=== PATIENT | male | born 1955 | race Caucasian/White ===

== ENCOUNTER 2021-09-06 16:02 | Inpatient (IN) | payer MEDICARE ==
[~2021-09-06] VITALS: Ht 182.9 cm; Wt 73.5 kg
[2021-09-06 18:40] VITALS: BP 121/62
[2021-09-06] MEDS ORDERED: DEXTROSE 50%-WATER 25 GM/50 ML SYRINGE IVP PRN (18:45)
[2021-09-06] MEDS ORDERED: ACETAMINOPHEN 325 MG TABLET PO PRN (18:45)
[2021-09-06] MEDS ORDERED: HydrOXYzine PAMOATE 25 MG CAPSULE PO PRN (19:30)
[2021-09-06] MEDS ORDERED: NITROGLYCERIN 0.4 MG SUBLINGUAL TABLET #25 SL PRN (19:30)
[2021-09-06] MEDS: INSULIN LISPRO 100 UNITS/ML SQ PRN ×2 (19:35→21:13)
[2021-09-06 20:56] LABS: GLUCOMETER DEV NAME(LOC) 2WR.2B; GLUCOSE,POINT OF CARE 184 MG/DL (70-110)
[2021-09-06] MEDS ORDERED: HydrALAZINE HCL 25 MG TABLET PO SCH (21:00)
[2021-09-06] MEDS: ETHYL ALCOHOL 62% ANTISEPTIC NASAL INHALANT 0.6 ML AMPUL NASAL SCH (21:07)
[2021-09-06] MEDS: CycloSPORINE 0.05% 0.4 ML OPHTHALMIC EMULSION OU SCH (21:08)
[2021-09-06] MEDS: DOCUSATE SODIUM 100 MG CAPSULE PO SCH (21:09)
[2021-09-06] MEDS: PANTOPRAZOLE SODIUM 40 MG DR TABLET PO SCH (21:09)
[2021-09-06] MEDS: SENNA 187 MG TABLET PO SCH (21:09)
[2021-09-06] MEDS: KETOCONAZOLE 2% 15 GM CREAM TP SCH (21:09)
[2021-09-06] MEDS: CHLORHEXIDINE GLUCONATE 4% 118 ML TOPICAL LIQUID TP SCH (21:21)
[2021-09-06] MEDS: MIRTAZAPINE 30 MG TABLET PO SCH (22:31)
[2021-09-06] MEDS: MELATONIN 5 MG TABLET PO SCH (22:31)
[2021-09-06] MEDS: TraZODone HCL 50 MG TABLET PO SCH (22:31)
[2021-09-06 22:35] VITALS: BP 128/64
[2021-09-06 22:41] LABS: GLUCOMETER DEV NAME(LOC) 2WR.2B; GLUCOSE,POINT OF CARE 181 MG/DL (70-110)
[2021-09-06] MEDS: CALCIUM CARBONATE 500 MG CHEWABLE TABLET CHEW SCH (22:55)
[2021-09-06] MEDS: 0.9% SODIUM CHLORIDE 10 ML SYRINGE IVP SCH (22:58)
[2021-09-06] MEDS ORDERED: CALCIUM CARBONATE 500 MG TABLET PO SCH (23:00)
[2021-09-07 06:11] LABS: GLUCOMETER DEV NAME(LOC) 2WR.2B; GLUCOSE,POINT OF CARE 105 MG/DL (70-110)
[2021-09-07] MEDS ORDERED: SEVELAMER CARBONATE 800 MG TABLET PO SCH (07:30)
[2021-09-07 07:56] LABS: BASOPHILS % (AUTO) 0.9 % (0.0-2.0); EOSINOPHILS % (AUTO) 3.8 % (1.0-6.0); HEMOGLOBIN 8.6 g/dL (13.5-17.5); LYMPHOCYTES # (AUTO) 1.2 K/uL (1.0-4.8); LYMPHOCYTES % (AUTO) 12.5 % (22.0-44.0); MEAN CORPUSCULAR HEMOGLOBIN 27.8 pg (26.0-34.0); MEAN CORPUSCULAR HGB CONC 31.7 G/dL (31.0-37.0); MEAN CORPUSCULAR VOLUME 88 fL (80-100); MONOCYTES # (AUTO) 0.8 K/uL (0.1-1.0); MONOCYTES % (AUTO) 8.5 % (2.0-9.0); NEUTROPHILS # (AUTO) 7.4 K/uL (1.8-7.7); NEUTROPHILS % (AUTO) 74.3 % (40.0-70.0); PLATELET COUNT (AUTO) 328 K/uL (150-450); RED BLOOD CELL COUNT(AUTO) 3.08 MIL/uL (4.50-5.90); RED CELL DISTRIBUTION WIDTH 20.6 % (11.5-14.5)
[2021-09-07 08:08] LABS: ALBUMIN 2.4 g/dL (3.4-5.0); BILIRUBIN,TOTAL 0.2 mg/dL (0.1-1.0); CALCIUM, TOTAL 8.9 mg/dL (8.8-10.5); CREATININE 5.1 mg/dL (0.60-1.30); POTASSIUM 4.4 mmol/L (3.5-5.1); TOTAL PROTEIN, SERUM 6.6 g/dL (6.4-8.2)
[2021-09-07] MEDS: CARVEDILOL 12.5 MG TABLET PO SCH ×2 (08:09→16:14)
[2021-09-07] MEDS: FERROUS SULFATE 325 MG EC TABLET PO SCH (08:09)
[2021-09-07 08:10] LABS: INR 2.2 (0.9-1.1); PROTHROMBIN TIME 22.9 SEC (9.4-11.6)
[2021-09-07] MEDS: SEVELAMER CARBONATE 800 MG TABLET PO SCH ×3 (08:10→16:14)
[2021-09-07] MEDS: CINACALCET HCL 30 MG TABLET PO SCH (08:11)
[2021-09-07] MEDS: ETHYL ALCOHOL 62% ANTISEPTIC NASAL INHALANT 0.6 ML AMPUL NASAL SCH ×2 (08:12→20:01)
[2021-09-07] MEDS: 0.9% SODIUM CHLORIDE 10 ML SYRINGE IVP SCH ×2 (08:12→16:15)
[2021-09-07] MEDS: METOCLOPRAMIDE HCL 10 MG TABLET PO PRN (08:16)
[2021-09-07] MEDS: ASPIRIN 81 MG CHEWABLE TABLET PO SCH (08:39)
[2021-09-07] MEDS: CycloSPORINE 0.05% 0.4 ML OPHTHALMIC EMULSION OU SCH ×2 (08:39→20:02)
[2021-09-07] MEDS: PANTOPRAZOLE SODIUM 40 MG DR TABLET PO SCH ×2 (08:40→20:04)
[2021-09-07] MEDS: DOCUSATE SODIUM 100 MG CAPSULE PO SCH ×2 (08:40→20:02)
[2021-09-07] MEDS: TAMSULOSIN HCL 0.4 MG CAPSULE PO SCH (08:40)
[2021-09-07] MEDS: FAMOTIDINE 20 MG TABLET PO SCH (08:40)
[2021-09-07] MEDS: ASCORBIC ACID 500 MG TABLET PO SCH (08:41)
[2021-09-07] MEDS: VITAMIN B COMPLEX WITH C TABLET PO SCH (08:41)
[2021-09-07] MEDS: AMIODARONE HCL 200 MG TABLET PO SCH (08:42)
[2021-09-07] MEDS: FINASTERIDE 5 MG TABLET PO SCH (08:42)
[2021-09-07 09:16] VITALS: BP 133/62
[2021-09-07] MEDS: TraMADol HCL 50 MG TABLET PO PRN (09:16)
[2021-09-07] MEDS: EPOETIN ALFA 10,000 UNITS/ML VIAL SQ SCH (12:02)
[2021-09-07] MEDS: CADEXOMER IODINE 0.9% 40 GM GEL TP SCH (12:03)
[2021-09-07] MEDS: KETOCONAZOLE 2% 15 GM CREAM TP SCH ×2 (12:03→20:10)
[2021-09-07] MEDS: PRAVASTATIN SODIUM 10 MG TABLET PO SCH (13:13)
[2021-09-07 13:25] LABS: GLUCOMETER DEV NAME(LOC) 2WR.2B; GLUCOSE,POINT OF CARE 140 MG/DL (70-110)
[2021-09-07] MEDS: WARFARIN SODIUM 7.5 MG TABLET PO SCH (16:13)
[2021-09-07] MEDS: INSULIN LISPRO 100 UNITS/ML SQ PRN ×2 (16:43→20:37)
[2021-09-07] MEDS: OxyCODONE HCL 5 MG IR TABLET PO PRN (16:45)
[2021-09-07 17:06] LABS: GLUCOMETER DEV NAME(LOC) 2WR.1C; GLUCOSE,POINT OF CARE 175 MG/DL (70-110)
[2021-09-07] MEDS: CHLORHEXIDINE GLUCONATE 4% 118 ML TOPICAL LIQUID TP SCH (20:07)
[2021-09-07] MEDS: SENNA 187 MG TABLET PO SCH (20:10)
[2021-09-07] MEDS: CALCIUM CARBONATE 500 MG CHEWABLE TABLET CHEW SCH (20:18)
[2021-09-07] MEDS: LORazepam 0.5 MG TABLET PO PRN (21:52)
[2021-09-07 22:36] LABS: GLUCOMETER DEV NAME(LOC) 2WR.2B; GLUCOSE,POINT OF CARE 170 MG/DL (70-110)
[2021-09-07 22:40] VITALS: BP 121/65
[2021-09-07] MEDS ORDERED: SODIUM CHLORIDE 0.9% 0 ML ONE (22:42)
[2021-09-07 23:00] VITALS: BP 129/74
[2021-09-07 23:15] VITALS: BP 128/81
[2021-09-07 23:30] VITALS: BP 127/73
[2021-09-07 23:31] VITALS: BP 127/73
[2021-09-08] VITALS (10 sets, daily range): BP systolic 116–133; BP diastolic 62–79
[2021-09-08] MEDS: 0.9% SODIUM CHLORIDE 10 ML SYRINGE IVP SCH ×4 (02:51→23:20)
[2021-09-08] MEDS: MIRTAZAPINE 30 MG TABLET PO SCH ×2 (02:51→22:13)
[2021-09-08] MEDS: TraZODone HCL 50 MG TABLET PO SCH ×2 (02:51→22:13)
[2021-09-08] MEDS: MELATONIN 5 MG TABLET PO SCH ×2 (02:51→22:14)
[2021-09-08] MEDS: OxyCODONE HCL 5 MG IR TABLET PO PRN ×3 (05:10→19:28)
[2021-09-08 08:36] LABS: GLUCOMETER DEV NAME(LOC) 2WR.2B; GLUCOSE,POINT OF CARE 99 MG/DL (70-110)
[2021-09-08 08:53] LABS: INR 2.8 (0.9-1.1); PROTHROMBIN TIME 28.7 SEC (9.4-11.6)
[2021-09-08] MEDS: VITAMIN B COMPLEX WITH C TABLET PO SCH (09:48)
[2021-09-08] MEDS: SEVELAMER CARBONATE 800 MG TABLET PO SCH ×3 (09:48→16:12)
[2021-09-08] MEDS: DOCUSATE SODIUM 100 MG CAPSULE PO SCH ×2 (09:48→19:40)
[2021-09-08] MEDS: FAMOTIDINE 20 MG TABLET PO SCH (09:48)
[2021-09-08] MEDS: ASCORBIC ACID 500 MG TABLET PO SCH (09:48)
[2021-09-08] MEDS: TORSEMIDE 100 MG TABLET PO SCH (09:49)
[2021-09-08] MEDS: METOLAZONE 2.5 MG TABLET PO SCH (09:49)
[2021-09-08] MEDS: ASPIRIN 81 MG CHEWABLE TABLET PO SCH (09:49)
[2021-09-08] MEDS: AMIODARONE HCL 200 MG TABLET PO SCH (09:49)
[2021-09-08] MEDS: CINACALCET HCL 30 MG TABLET PO SCH (09:49)
[2021-09-08] MEDS: FINASTERIDE 5 MG TABLET PO SCH (09:49)
[2021-09-08] MEDS: PRAVASTATIN SODIUM 10 MG TABLET PO SCH (09:50)
[2021-09-08] MEDS: CARVEDILOL 12.5 MG TABLET PO SCH ×2 (09:50→16:12)
[2021-09-08] MEDS: CycloSPORINE 0.05% 0.4 ML OPHTHALMIC EMULSION OU SCH ×2 (09:50→19:40)
[2021-09-08] MEDS: PANTOPRAZOLE SODIUM 40 MG DR TABLET PO SCH ×2 (09:50→19:48)
[2021-09-08] MEDS: TAMSULOSIN HCL 0.4 MG CAPSULE PO SCH (09:50)
[2021-09-08] MEDS: FERROUS SULFATE 325 MG EC TABLET PO SCH (09:50)
[2021-09-08] MEDS: ETHYL ALCOHOL 62% ANTISEPTIC NASAL INHALANT 0.6 ML AMPUL NASAL SCH ×2 (09:51→19:40)
[2021-09-08] MEDS: KETOCONAZOLE 2% 15 GM CREAM TP SCH ×2 (10:01→19:45)
[2021-09-08] MEDS: INSULIN LISPRO 100 UNITS/ML SQ PRN ×2 (12:48→20:47)
[2021-09-08 12:56] LABS: GLUCOMETER DEV NAME(LOC) 2WR.2B; GLUCOSE,POINT OF CARE 187 MG/DL (70-110)
[2021-09-08] MEDS: LORazepam 0.5 MG TABLET PO PRN (13:54)
[2021-09-08] MEDS ORDERED: HEPARIN SODIUM,PORCINE 1,000 UNITS/ML VIAL IVP ONE (14:27)
[2021-09-08] MEDS: WARFARIN SODIUM 7.5 MG TABLET PO SCH (16:12)
[2021-09-08 17:16] LABS: GLUCOMETER DEV NAME(LOC) 2WR.1C; GLUCOSE,POINT OF CARE 115 MG/DL (70-110)
[2021-09-08] MEDS: CALCIUM CARBONATE 500 MG CHEWABLE TABLET CHEW SCH (19:39)
[2021-09-08] MEDS: CHLORHEXIDINE GLUCONATE 4% 118 ML TOPICAL LIQUID TP SCH (19:45)
[2021-09-08] MEDS: SENNA 187 MG TABLET PO SCH (19:53)
[2021-09-08 22:01] LABS: GLUCOMETER DEV NAME(LOC) 2WR.1C; GLUCOSE,POINT OF CARE 146 MG/DL (70-110)
[2021-09-09] VITALS (12 sets, daily range): BP systolic 118–133; BP diastolic 51–78
[2021-09-09] MEDS: OxyCODONE HCL 5 MG IR TABLET PO PRN ×2 (01:58→12:22)
[2021-09-09 06:26] LABS: GLUCOMETER DEV NAME(LOC) 2WR.2B; GLUCOSE,POINT OF CARE 92 MG/DL (70-110)
[2021-09-09 08:48] LABS: INR 3.1 (0.9-1.1); PROTHROMBIN TIME 31.7 SEC (9.4-11.6)
[2021-09-09 08:53] LABS: CALCIUM, TOTAL 8.5 mg/dL (8.8-10.5); PHOSPHORUS 6.7 mg/dL (2.5-4.9)
[2021-09-09] MEDS: CINACALCET HCL 30 MG TABLET PO SCH (08:58)
[2021-09-09] MEDS: FAMOTIDINE 20 MG TABLET PO SCH (08:58)
[2021-09-09] MEDS: CycloSPORINE 0.05% 0.4 ML OPHTHALMIC EMULSION OU SCH ×2 (08:58→22:00)
[2021-09-09] MEDS: ETHYL ALCOHOL 62% ANTISEPTIC NASAL INHALANT 0.6 ML AMPUL NASAL SCH ×2 (08:58→22:00)
[2021-09-09] MEDS: VITAMIN B COMPLEX WITH C TABLET PO SCH (08:58)
[2021-09-09] MEDS: PRAVASTATIN SODIUM 10 MG TABLET PO SCH (08:58)
[2021-09-09] MEDS: FINASTERIDE 5 MG TABLET PO SCH (08:58)
[2021-09-09] MEDS: TORSEMIDE 100 MG TABLET PO SCH (08:59)
[2021-09-09] MEDS: SEVELAMER CARBONATE 800 MG TABLET PO SCH ×3 (08:59→19:04)
[2021-09-09] MEDS: PANTOPRAZOLE SODIUM 40 MG DR TABLET PO SCH ×2 (08:59→21:59)
[2021-09-09] MEDS: AMIODARONE HCL 200 MG TABLET PO SCH (08:59)
[2021-09-09] MEDS: DOCUSATE SODIUM 100 MG CAPSULE PO SCH ×2 (08:59→21:59)
[2021-09-09] MEDS: FERROUS SULFATE 325 MG EC TABLET PO SCH (08:59)
[2021-09-09] MEDS: ASPIRIN 81 MG CHEWABLE TABLET PO SCH (08:59)
[2021-09-09] MEDS ORDERED: HydrALAZINE HCL 25 MG TABLET PO SCH ×2 (09:00→16:00)
[2021-09-09] MEDS: ASCORBIC ACID 500 MG TABLET PO SCH (09:00)
[2021-09-09] MEDS: CARVEDILOL 12.5 MG TABLET PO SCH ×2 (09:00→19:04)
[2021-09-09] MEDS: TAMSULOSIN HCL 0.4 MG CAPSULE PO SCH (09:00)
[2021-09-09] MEDS: METOLAZONE 2.5 MG TABLET PO SCH (09:12)
[2021-09-09] MEDS: 0.9% SODIUM CHLORIDE 10 ML SYRINGE IVP SCH ×3 (09:13→23:42)
[2021-09-09] MEDS: KETOCONAZOLE 2% 15 GM CREAM TP SCH ×2 (09:13→22:01)
[2021-09-09 12:31] LABS: GLUCOMETER DEV NAME(LOC) 2WR.2B; GLUCOSE,POINT OF CARE 120 MG/DL (70-110)
[2021-09-09] MEDS ORDERED: SODIUM CHLORIDE 0.9% 2,000 ML ONE (13:47)
[2021-09-09] MEDS ORDERED: HEPARIN SODIUM,PORCINE 1,000 UNITS/ML VIAL IVP ONE (16:50)
[2021-09-09] MEDS: WARFARIN SODIUM 7.5 MG TABLET PO SCH (19:04)
[2021-09-09 19:36] LABS: GLUCOMETER DEV NAME(LOC) 2WR.1C; GLUCOSE,POINT OF CARE 91 MG/DL (70-110)
[2021-09-09] MEDS: INSULIN LISPRO 100 UNITS/ML SQ PRN (21:55)
[2021-09-09] MEDS: MELATONIN 5 MG TABLET PO SCH (21:59)
[2021-09-09] MEDS: CALCIUM CARBONATE 500 MG CHEWABLE TABLET CHEW SCH (22:00)
[2021-09-09] MEDS: SENNA 187 MG TABLET PO SCH (22:00)
[2021-09-09] MEDS: CHLORHEXIDINE GLUCONATE 4% 118 ML TOPICAL LIQUID TP SCH (22:02)
[2021-09-09] MEDS: MIRTAZAPINE 30 MG TABLET PO SCH (22:02)
[2021-09-09 22:11] LABS: GLUCOMETER DEV NAME(LOC) 2WR.1C; GLUCOSE,POINT OF CARE 161 MG/DL (70-110)
[2021-09-09] MEDS: TraZODone HCL 50 MG TABLET PO SCH (22:50)
[2021-09-10 01:00] VITALS: BP 113/64
[2021-09-10] MEDS: OxyCODONE HCL 5 MG IR TABLET PO PRN ×3 (01:00→20:07)
[2021-09-10 06:26] LABS: GLUCOMETER DEV NAME(LOC) 2WR.1C; GLUCOSE,POINT OF CARE 89 MG/DL (70-110)
[2021-09-10 07:28] LABS: BASOPHILS % (AUTO) 0.6 % (0.0-2.0); EOSINOPHILS % (AUTO) 3.5 % (1.0-6.0); HEMATOCRIT 26.3 % (41-53); HEMOGLOBIN 8.2 g/dL (13.5-17.5); LYMPHOCYTES # (AUTO) 0.7 K/uL (1.0-4.8); LYMPHOCYTES % (AUTO) 8.7 % (22.0-44.0); MEAN CORPUSCULAR HEMOGLOBIN 27.4 pg (26.0-34.0); MEAN CORPUSCULAR HGB CONC 31.1 G/dL (31.0-37.0); MEAN CORPUSCULAR VOLUME 88 fL (80-100); MONOCYTES # (AUTO) 0.7 K/uL (0.1-1.0); MONOCYTES % (AUTO) 8.2 % (2.0-9.0); NEUTROPHILS # (AUTO) 6.7 K/uL (1.8-7.7); PLATELET COUNT (AUTO) 274 K/uL (150-450); RED BLOOD CELL COUNT(AUTO) 2.99 MIL/uL (4.50-5.90); RED CELL DISTRIBUTION WIDTH 20.1 % (11.5-14.5)
[2021-09-10 07:40] LABS: CALCIUM, TOTAL 8.4 mg/dL (8.8-10.5); CREATININE 2.76 mg/dL (0.60-1.30); MAGNESIUM 2.2 mg/dL (1.80-2.40); POTASSIUM 3.4 mmol/L (3.5-5.1)
[2021-09-10 07:50] LABS: INR 3.5 (0.9-1.1); PROTHROMBIN TIME 34.8 SEC (9.4-11.6)
[2021-09-10] MEDS: CycloSPORINE 0.05% 0.4 ML OPHTHALMIC EMULSION OU SCH ×2 (08:53→20:28)
[2021-09-10] MEDS: EPOETIN ALFA 10,000 UNITS/ML VIAL SQ SCH (08:54)
[2021-09-10] MEDS: METOLAZONE 2.5 MG TABLET PO SCH (08:55)
[2021-09-10] MEDS: PRAVASTATIN SODIUM 10 MG TABLET PO SCH (08:55)
[2021-09-10] MEDS: CINACALCET HCL 30 MG TABLET PO SCH (08:55)
[2021-09-10] MEDS: VITAMIN B COMPLEX WITH C TABLET PO SCH (08:55)
[2021-09-10] MEDS: SEVELAMER CARBONATE 800 MG TABLET PO SCH ×3 (08:56→20:08)
[2021-09-10] MEDS: PANTOPRAZOLE SODIUM 40 MG DR TABLET PO SCH ×2 (08:56→20:28)
[2021-09-10] MEDS: TORSEMIDE 100 MG TABLET PO SCH (08:56)
[2021-09-10] MEDS: ASPIRIN 81 MG CHEWABLE TABLET PO SCH (08:57)
[2021-09-10] MEDS: AMIODARONE HCL 200 MG TABLET PO SCH (08:57)
[2021-09-10] MEDS: CARVEDILOL 12.5 MG TABLET PO SCH ×2 (08:57→20:07)
[2021-09-10] MEDS: ASCORBIC ACID 500 MG TABLET PO SCH (08:57)
[2021-09-10] MEDS: FINASTERIDE 5 MG TABLET PO SCH (08:58)
[2021-09-10] MEDS: FAMOTIDINE 20 MG TABLET PO SCH (08:58)
[2021-09-10] MEDS: DOCUSATE SODIUM 100 MG CAPSULE PO SCH ×2 (08:58→20:28)
[2021-09-10] MEDS: FERROUS SULFATE 325 MG EC TABLET PO SCH (08:58)
[2021-09-10] MEDS: TAMSULOSIN HCL 0.4 MG CAPSULE PO SCH (08:58)
[2021-09-10] MEDS: ETHYL ALCOHOL 62% ANTISEPTIC NASAL INHALANT 0.6 ML AMPUL NASAL SCH ×2 (08:59→20:29)
[2021-09-10] MEDS: 0.9% SODIUM CHLORIDE 10 ML SYRINGE IVP SCH ×3 (08:59→23:51)
[2021-09-10] MEDS: KETOCONAZOLE 2% 15 GM CREAM TP SCH ×2 (08:59→20:28)
[2021-09-10] MEDS: CADEXOMER IODINE 0.9% 40 GM GEL TP SCH (08:59)
[2021-09-10] MEDS ORDERED: HydrALAZINE HCL 25 MG TABLET PO SCH (09:00)
[2021-09-10 09:15] VITALS: BP 123/62
[2021-09-10 14:06] LABS: GLUCOMETER DEV NAME(LOC) 2WR.2B; GLUCOSE,POINT OF CARE 119 MG/DL (70-110)
[2021-09-10 16:14] VITALS: BP 111/70
[2021-09-10 17:01] LABS: GLUCOMETER DEV NAME(LOC) 2WR.2B; GLUCOSE,POINT OF CARE 120 MG/DL (70-110)
[2021-09-10 20:00] VITALS: BP 118/62
[2021-09-10] MEDS: SENNA 187 MG TABLET PO SCH (20:28)
[2021-09-10] MEDS: CHLORHEXIDINE GLUCONATE 4% 118 ML TOPICAL LIQUID TP SCH (20:30)
[2021-09-10] MEDS: INSULIN LISPRO 100 UNITS/ML SQ PRN (20:39)
[2021-09-10 20:57] LABS: GLUCOMETER DEV NAME(LOC) 2WR.2B; GLUCOSE,POINT OF CARE 169 MG/DL (70-110)
[2021-09-10] MEDS: TraZODone HCL 50 MG TABLET PO SCH (22:31)
[2021-09-10] MEDS: CALCIUM CARBONATE 500 MG CHEWABLE TABLET CHEW SCH (22:31)
[2021-09-10] MEDS: MELATONIN 5 MG TABLET PO SCH (22:31)
[2021-09-10] MEDS: MIRTAZAPINE 30 MG TABLET PO SCH (22:31)
[2021-09-11] VITALS (15 sets, daily range): BP systolic 105–134; BP diastolic 58–82
[2021-09-11] MEDS: CARVEDILOL 12.5 MG TABLET PO SCH ×2 (07:30→19:59)
[2021-09-11 08:06] LABS: GLUCOMETER DEV NAME(LOC) 2WR.1C; GLUCOSE,POINT OF CARE 87 MG/DL (70-110)
[2021-09-11] MEDS: ETHYL ALCOHOL 62% ANTISEPTIC NASAL INHALANT 0.6 ML AMPUL NASAL SCH ×2 (08:37→20:01)
[2021-09-11 08:39] LABS: INR 3.1 (0.9-1.1)
[2021-09-11] MEDS: CycloSPORINE 0.05% 0.4 ML OPHTHALMIC EMULSION OU SCH ×2 (08:39→20:01)
[2021-09-11 08:40] LABS: CALCIUM, TOTAL 8.4 mg/dL (8.8-10.5); CREATININE 3.76 mg/dL (0.60-1.30); MAGNESIUM 2.1 mg/dL (1.80-2.40); PHOSPHORUS 5.7 mg/dL (2.5-4.9); POTASSIUM 3.3 mmol/L (3.5-5.1)
[2021-09-11] MEDS: FERROUS SULFATE 325 MG EC TABLET PO SCH (08:40)
[2021-09-11] MEDS: VITAMIN B COMPLEX WITH C TABLET PO SCH (08:40)
[2021-09-11] MEDS: KETOCONAZOLE 2% 15 GM CREAM TP SCH ×2 (08:40→20:00)
[2021-09-11] MEDS: ASCORBIC ACID 500 MG TABLET PO SCH (08:41)
[2021-09-11] MEDS: OxyCODONE HCL 5 MG IR TABLET PO PRN ×2 (08:41→21:02)
[2021-09-11] MEDS: AMIODARONE HCL 200 MG TABLET PO SCH (08:42)
[2021-09-11] MEDS: DOCUSATE SODIUM 100 MG CAPSULE PO SCH ×2 (08:42→20:03)
[2021-09-11] MEDS: PANTOPRAZOLE SODIUM 40 MG DR TABLET PO SCH ×2 (08:42→20:03)
[2021-09-11] MEDS: TAMSULOSIN HCL 0.4 MG CAPSULE PO SCH (08:42)
[2021-09-11] MEDS: ASPIRIN 81 MG CHEWABLE TABLET PO SCH (08:42)
[2021-09-11] MEDS: SEVELAMER CARBONATE 800 MG TABLET PO SCH ×3 (08:43→19:57)
[2021-09-11] MEDS: PRAVASTATIN SODIUM 10 MG TABLET PO SCH (08:44)
[2021-09-11] MEDS: FINASTERIDE 5 MG TABLET PO SCH (08:44)
[2021-09-11] MEDS: FAMOTIDINE 20 MG TABLET PO SCH (08:44)
[2021-09-11] MEDS: 0.9% SODIUM CHLORIDE 10 ML SYRINGE IVP SCH ×2 (08:45→20:00)
[2021-09-11 08:50] LABS: % IRON SATURATION 7.2 % (30-44)
[2021-09-11 14:26] LABS: GLUCOMETER DEV NAME(LOC) 2WR.1C; GLUCOSE,POINT OF CARE 120 MG/DL (70-110)
[2021-09-11] MEDS: LORazepam 0.5 MG TABLET PO PRN (15:25)
[2021-09-11] MEDS ORDERED: SODIUM CHLORIDE 0.9% 1,000 ML ONE ×2 (15:33)
[2021-09-11] MEDS ORDERED: HEPARIN SODIUM,PORCINE 1,000 UNITS/ML VIAL IVP ONE (16:49)
[2021-09-11] MEDS ORDERED: WARFARIN SODIUM 3 MG TABLET PO SCH (17:00)
[2021-09-11] MEDS: SOD FERRIC GLUC COMPLX/SUCROSE 125 MG in SODIUM CHLORIDE 0.9% 100 ML IV SCH ×2 (18:30→19:57)
[2021-09-11] MEDS: CHLORHEXIDINE GLUCONATE 4% 118 ML TOPICAL LIQUID TP SCH (20:00)
[2021-09-11] MEDS: SENNA 187 MG TABLET PO SCH (20:03)
[2021-09-11 21:57] LABS: GLUCOMETER DEV NAME(LOC) 2WR.2B; GLUCOSE,POINT OF CARE 80 MG/DL (70-110)
[2021-09-11] MEDS: INSULIN LISPRO 100 UNITS/ML SQ PRN (22:22)
[2021-09-11] MEDS: CALCIUM CARBONATE 500 MG CHEWABLE TABLET CHEW SCH (22:23)
[2021-09-11] MEDS: MIRTAZAPINE 30 MG TABLET PO SCH (22:23)
[2021-09-11] MEDS: TraZODone HCL 50 MG TABLET PO SCH (22:23)
[2021-09-11] MEDS: MELATONIN 5 MG TABLET PO SCH (22:25)
[2021-09-11 23:36] LABS: GLUCOMETER DEV NAME(LOC) 2WR.2B; GLUCOSE,POINT OF CARE 164 MG/DL (70-110)
[2021-09-12 00:22] VITALS: BP 122/65
[2021-09-12] MEDS: TraMADol HCL 50 MG TABLET PO PRN (00:22)
[2021-09-12] MEDS: 0.9% SODIUM CHLORIDE 10 ML SYRINGE IVP SCH ×3 (00:25→16:51)
[2021-09-12 06:46] LABS: GLUCOMETER DEV NAME(LOC) 2WR.1C; GLUCOSE,POINT OF CARE 93 MG/DL (70-110)
[2021-09-12] MEDS: METOCLOPRAMIDE HCL 10 MG TABLET PO PRN (08:32)
[2021-09-12] MEDS: ETHYL ALCOHOL 62% ANTISEPTIC NASAL INHALANT 0.6 ML AMPUL NASAL SCH ×2 (08:33→21:22)
[2021-09-12 08:42] LABS: INR 2.2 (0.9-1.1)
[2021-09-12 08:51] LABS: ALBUMIN 2.6 g/dL (3.4-5.0); BILIRUBIN,DIRECT 0.1 mg/dL (0.00-0.20); BILIRUBIN,TOTAL 0.2 mg/dL (0.1-1.0); TOTAL PROTEIN, SERUM 6.6 g/dL (6.4-8.2)
[2021-09-12] MEDS: OxyCODONE HCL 5 MG IR TABLET PO PRN ×2 (08:53→19:32)
[2021-09-12] MEDS: AMIODARONE HCL 200 MG TABLET PO SCH (08:54)
[2021-09-12] MEDS: VITAMIN B COMPLEX WITH C TABLET PO SCH (08:54)
[2021-09-12] MEDS: TAMSULOSIN HCL 0.4 MG CAPSULE PO SCH (08:54)
[2021-09-12] MEDS: METOLAZONE 2.5 MG TABLET PO SCH (08:54)
[2021-09-12] MEDS: FINASTERIDE 5 MG TABLET PO SCH (08:54)
[2021-09-12] MEDS: SEVELAMER CARBONATE 800 MG TABLET PO SCH ×3 (08:54→16:41)
[2021-09-12] MEDS: DOCUSATE SODIUM 100 MG CAPSULE PO SCH ×2 (08:54→21:21)
[2021-09-12] MEDS: FERROUS SULFATE 325 MG EC TABLET PO SCH (08:55)
[2021-09-12] MEDS: CycloSPORINE 0.05% 0.4 ML OPHTHALMIC EMULSION OU SCH ×2 (08:55→21:22)
[2021-09-12] MEDS: FAMOTIDINE 20 MG TABLET PO SCH (08:55)
[2021-09-12] MEDS: ASPIRIN 81 MG CHEWABLE TABLET PO SCH (08:55)
[2021-09-12] MEDS: ASCORBIC ACID 500 MG TABLET PO SCH (08:55)
[2021-09-12] MEDS: TORSEMIDE 100 MG TABLET PO SCH (08:55)
[2021-09-12] MEDS: PRAVASTATIN SODIUM 10 MG TABLET PO SCH (08:55)
[2021-09-12] MEDS: CARVEDILOL 12.5 MG TABLET PO SCH ×2 (08:55→16:41)
[2021-09-12] MEDS: PANTOPRAZOLE SODIUM 40 MG DR TABLET PO SCH ×2 (08:55→21:21)
[2021-09-12] MEDS: KETOCONAZOLE 2% 15 GM CREAM TP SCH ×2 (08:56→21:23)
[2021-09-12] MEDS: CADEXOMER IODINE 0.9% 40 GM GEL TP SCH (08:56)
[2021-09-12 09:00] VITALS: BP 106/58
[2021-09-12] MEDS: EPOETIN ALFA 10,000 UNITS/ML VIAL SQ SCH (09:29)
[2021-09-12 12:26] LABS: GLUCOMETER DEV NAME(LOC) 2WR.1C; GLUCOSE,POINT OF CARE 117 MG/DL (70-110)
[2021-09-12] MEDS ORDERED: SODIUM CL IRRIG SOLN BOTTLE 250 ML IRRIG ONE (16:22)
[2021-09-12 16:30] VITALS: BP 126/74
[2021-09-12] MEDS ORDERED: WARFARIN SODIUM 2 MG TABLET PO SCH (17:00)
[2021-09-12 17:01] LABS: GLUCOMETER DEV NAME(LOC) 2WR.2B; GLUCOSE,POINT OF CARE 98 MG/DL (70-110)
[2021-09-12 21:00] VITALS: BP 115/62
[2021-09-12] MEDS: CHLORHEXIDINE GLUCONATE 4% 118 ML TOPICAL LIQUID TP SCH (21:21)
[2021-09-12] MEDS: SENNA 187 MG TABLET PO SCH (21:21)
[2021-09-12] MEDS: CALCIUM CARBONATE 500 MG CHEWABLE TABLET CHEW SCH (21:22)
[2021-09-12 21:51] LABS: GLUCOMETER DEV NAME(LOC) 2WR.2B; GLUCOSE,POINT OF CARE 126 MG/DL (70-110)
[2021-09-12] MEDS: MIRTAZAPINE 30 MG TABLET PO SCH (22:27)
[2021-09-12] MEDS: TraZODone HCL 50 MG TABLET PO SCH (22:28)
[2021-09-12] MEDS: MELATONIN 5 MG TABLET PO SCH (22:28)
[2021-09-13] VITALS (13 sets, daily range): BP systolic 95–150; BP diastolic 57–80
[2021-09-13] MEDS: 0.9% SODIUM CHLORIDE 10 ML SYRINGE IVP SCH ×4 (00:17→23:13)
[2021-09-13] MEDS: OxyCODONE HCL 5 MG IR TABLET PO PRN ×3 (01:43→21:56)
[2021-09-13 06:11] LABS: GLUCOMETER DEV NAME(LOC) 2WR.2B; GLUCOSE,POINT OF CARE 112 MG/DL (70-110)
[2021-09-13 07:52] LABS: BASOPHILS % (AUTO) 1.2 % (0.0-2.0); EOSINOPHILS % (AUTO) 3.3 % (1.0-6.0); HEMATOCRIT 26.7 % (41-53); HEMOGLOBIN 8.6 g/dL (13.5-17.5); LYMPHOCYTES # (AUTO) 0.6 K/uL (1.0-4.8); MEAN CORPUSCULAR HEMOGLOBIN 27.7 pg (26.0-34.0); MEAN CORPUSCULAR HGB CONC 32.1 G/dL (31.0-37.0); MEAN CORPUSCULAR VOLUME 86 fL (80-100); MONOCYTES # (AUTO) 0.8 K/uL (0.1-1.0); MONOCYTES % (AUTO) 8.5 % (2.0-9.0); NEUTROPHILS # (AUTO) 7.3 K/uL (1.8-7.7); PLATELET COUNT (AUTO) 215 K/uL (150-450); RED CELL DISTRIBUTION WIDTH 20.1 % (11.5-14.5)
[2021-09-13 08:03] LABS: CALCIUM, TOTAL 9.3 mg/dL (8.8-10.5); CREATININE 3.54 mg/dL (0.60-1.30); MAGNESIUM 2.2 mg/dL (1.80-2.40); POTASSIUM 3.6 mmol/L (3.5-5.1)
[2021-09-13 08:04] LABS: INR 1.9 (0.9-1.1); PROTHROMBIN TIME 20.1 SEC (9.4-11.6)
[2021-09-13] MEDS: FERROUS SULFATE 325 MG EC TABLET PO SCH (08:11)
[2021-09-13] MEDS: VITAMIN B COMPLEX WITH C TABLET PO SCH (08:11)
[2021-09-13] MEDS: ASPIRIN 81 MG CHEWABLE TABLET PO SCH (08:11)
[2021-09-13] MEDS: ETHYL ALCOHOL 62% ANTISEPTIC NASAL INHALANT 0.6 ML AMPUL NASAL SCH ×2 (08:11→20:13)
[2021-09-13] MEDS: FINASTERIDE 5 MG TABLET PO SCH (08:12)
[2021-09-13] MEDS: FAMOTIDINE 20 MG TABLET PO SCH (08:12)
[2021-09-13] MEDS: DOCUSATE SODIUM 100 MG CAPSULE PO SCH ×2 (08:12→20:13)
[2021-09-13] MEDS: CARVEDILOL 12.5 MG TABLET PO SCH ×2 (08:12→20:09)
[2021-09-13] MEDS: AMIODARONE HCL 200 MG TABLET PO SCH (08:12)
[2021-09-13] MEDS: PANTOPRAZOLE SODIUM 40 MG DR TABLET PO SCH ×2 (08:12→20:13)
[2021-09-13] MEDS: TAMSULOSIN HCL 0.4 MG CAPSULE PO SCH (08:12)
[2021-09-13] MEDS: CycloSPORINE 0.05% 0.4 ML OPHTHALMIC EMULSION OU SCH ×2 (08:12→20:13)
[2021-09-13] MEDS: PRAVASTATIN SODIUM 10 MG TABLET PO SCH (08:12)
[2021-09-13] MEDS: SEVELAMER CARBONATE 800 MG TABLET PO SCH ×3 (08:12→20:12)
[2021-09-13] MEDS: ASCORBIC ACID 500 MG TABLET PO SCH (08:13)
[2021-09-13] MEDS: KETOCONAZOLE 2% 15 GM CREAM TP SCH ×2 (08:14→20:13)
[2021-09-13 12:36] LABS: GLUCOMETER DEV NAME(LOC) 2WR.1C; GLUCOSE,POINT OF CARE 122 MG/DL (70-110)
[2021-09-13] MEDS ORDERED: SODIUM CHLORIDE 0.9% 2,000 ML ONE (15:00)
[2021-09-13] MEDS: LORazepam 0.5 MG TABLET PO PRN (15:06)
[2021-09-13] MEDS ORDERED: WARFARIN SODIUM 5 MG TABLET PO SCH (17:00)
[2021-09-13 20:02] LABS: COVID AG,FIA SOURCE NASAL SWAB
[2021-09-13] MEDS: SOD FERRIC GLUC COMPLX/SUCROSE 125 MG in SODIUM CHLORIDE 0.9% 100 ML IV SCH (20:09)
[2021-09-13] MEDS: CHLORHEXIDINE GLUCONATE 4% 118 ML TOPICAL LIQUID TP SCH (20:12)
[2021-09-13] MEDS: SENNA 187 MG TABLET PO SCH (20:13)
[2021-09-13 20:31] LABS: GLUCOMETER DEV NAME(LOC) 2WR.1C; GLUCOSE,POINT OF CARE 87 MG/DL (70-110)
[2021-09-13] MEDS: MIRTAZAPINE 30 MG TABLET PO SCH (22:29)
[2021-09-13] MEDS: MELATONIN 5 MG TABLET PO SCH (22:29)
[2021-09-13] MEDS: TraZODone HCL 50 MG TABLET PO SCH (22:29)
[2021-09-13] MEDS: CALCIUM CARBONATE 500 MG CHEWABLE TABLET CHEW SCH (22:29)
[2021-09-13] MEDS: INSULIN LISPRO 100 UNITS/ML SQ PRN (22:34)
[2021-09-13 23:21] LABS: GLUCOMETER DEV NAME(LOC) 2WR.2B; GLUCOSE,POINT OF CARE 153 MG/DL (70-110)
[2021-09-14 00:10] VITALS: BP 97/62
[2021-09-14] MEDS: TraMADol HCL 50 MG TABLET PO PRN (01:07)
[2021-09-14 06:06] LABS: HEPATITIS C AB (EIA) <0.1 s/co ratio (0.0-0.9)
[2021-09-14 06:16] LABS: GLUCOMETER DEV NAME(LOC) 2WR.1C; GLUCOSE,POINT OF CARE 107 MG/DL (70-110)
[2021-09-14] MEDS: SEVELAMER CARBONATE 800 MG TABLET PO SCH ×3 (08:08→16:37)
[2021-09-14] MEDS: EPOETIN ALFA 10,000 UNITS/ML VIAL SQ SCH (08:23)
[2021-09-14] MEDS: KETOCONAZOLE 2% 15 GM CREAM TP SCH ×2 (08:24→21:40)
[2021-09-14] MEDS: CADEXOMER IODINE 0.9% 40 GM GEL TP SCH ×2 (08:24→15:20)
[2021-09-14] MEDS: CycloSPORINE 0.05% 0.4 ML OPHTHALMIC EMULSION OU SCH ×2 (08:24→21:36)
[2021-09-14] MEDS: AMIODARONE HCL 200 MG TABLET PO SCH (08:26)
[2021-09-14] MEDS: ASCORBIC ACID 500 MG TABLET PO SCH (08:26)
[2021-09-14] MEDS: 0.9% SODIUM CHLORIDE 10 ML SYRINGE IVP SCH ×3 (08:26→22:49)
[2021-09-14] MEDS: CARVEDILOL 12.5 MG TABLET PO SCH ×2 (08:26→16:37)
[2021-09-14] MEDS: VITAMIN B COMPLEX WITH C TABLET PO SCH (08:26)
[2021-09-14] MEDS: ASPIRIN 81 MG CHEWABLE TABLET PO SCH (08:27)
[2021-09-14] MEDS: PRAVASTATIN SODIUM 10 MG TABLET PO SCH (08:27)
[2021-09-14] MEDS: TORSEMIDE 100 MG TABLET PO SCH (08:27)
[2021-09-14] MEDS: FERROUS SULFATE 325 MG EC TABLET PO SCH (08:27)
[2021-09-14] MEDS: METOLAZONE 2.5 MG TABLET PO SCH (08:27)
[2021-09-14] MEDS: FINASTERIDE 5 MG TABLET PO SCH (08:28)
[2021-09-14] MEDS: PANTOPRAZOLE SODIUM 40 MG DR TABLET PO SCH ×2 (08:28→21:37)
[2021-09-14] MEDS: FAMOTIDINE 20 MG TABLET PO SCH (08:28)
[2021-09-14] MEDS: DOCUSATE SODIUM 100 MG CAPSULE PO SCH ×2 (08:28→21:36)
[2021-09-14] MEDS: TAMSULOSIN HCL 0.4 MG CAPSULE PO SCH (08:28)
[2021-09-14] MEDS: ETHYL ALCOHOL 62% ANTISEPTIC NASAL INHALANT 0.6 ML AMPUL NASAL SCH ×2 (08:29→21:35)
[2021-09-14 08:37] LABS: INR 1.9 (0.9-1.1); PROTHROMBIN TIME 19.2 SEC (9.4-11.6)
[2021-09-14] MEDS: OxyCODONE HCL 5 MG IR TABLET PO PRN ×2 (08:51→19:20)
[2021-09-14 08:55] VITALS: BP 116/59
[2021-09-14] MEDS ORDERED: ASPI81 PO (10:56)
[2021-09-14] MEDS ORDERED: FINA-27 PO (10:56)
[2021-09-14] MEDS ORDERED: SENN-187 PO (10:56)
[2021-09-14] MEDS ORDERED: CYCL05OE OU (10:56)
[2021-09-14] MEDS ORDERED: AMIO200 PO (10:56)
[2021-09-14] MEDS ORDERED: SEVE800T17 PO (10:56)
[2021-09-14] MEDS ORDERED: DOCU-119 PO (10:56)
[2021-09-14] MEDS ORDERED: TAMS-13 PO (10:56)
[2021-09-14] MEDS ORDERED: [UNRECOGNIZED DRUG - OTHER] PO (10:56)
[2021-09-14] MEDS ORDERED: FERR-72 PO (10:56)
[2021-09-14] MEDS ORDERED: METO2.5T2 PO (10:56)
[2021-09-14] MEDS ORDERED: METO10TA3 PO (10:56)
[2021-09-14] MEDS ORDERED: PANT-31 PO (10:56)
[2021-09-14] MEDS ORDERED: CALC500T37 CHEW (10:56)
[2021-09-14] MEDS ORDERED: TORS100T16 PO (10:56)
[2021-09-14] MEDS ORDERED: ASCO500 PO (10:56)
[2021-09-14] MEDS ORDERED: MIRT30 PO (10:56)
[2021-09-14] MEDS ORDERED: CARV12 PO (10:56)
[2021-09-14] MEDS ORDERED: PRAV10TA39 PO (10:56)
[2021-09-14] MEDS ORDERED: WARF2TAB30 PO ×2 (10:58→11:00)
[2021-09-14] MEDS: INSULIN LISPRO 100 UNITS/ML SQ PRN ×2 (12:10→20:56)
[2021-09-14 15:26] LABS: GLUCOMETER DEV NAME(LOC) 2WR.1C; GLUCOSE,POINT OF CARE 146 MG/DL (70-110)
[2021-09-14] MEDS ORDERED: HEPARIN SODIUM,PORCINE 1,000 UNITS/ML VIAL IVP ONE (16:04)
[2021-09-14 16:30] VITALS: BP 102/66
[2021-09-14] MEDS: WARFARIN SODIUM 2 MG TABLET PO SCH (16:38)
[2021-09-14 21:12] LABS: GLUCOMETER DEV NAME(LOC) 2WR.2B; GLUCOSE,POINT OF CARE 162 MG/DL (70-110)
[2021-09-14] MEDS: MELATONIN 5 MG TABLET PO SCH (21:35)
[2021-09-14] MEDS: MIRTAZAPINE 30 MG TABLET PO SCH (21:36)
[2021-09-14] MEDS: SENNA 187 MG TABLET PO SCH (21:36)
[2021-09-14] MEDS: CHLORHEXIDINE GLUCONATE 4% 118 ML TOPICAL LIQUID TP SCH (21:37)
[2021-09-14] MEDS: CALCIUM CARBONATE 500 MG CHEWABLE TABLET CHEW SCH (21:37)
[2021-09-14] MEDS: LORazepam 0.5 MG TABLET PO PRN (22:49)
[2021-09-15] VITALS: BP 112/64
[2021-09-15 06:22] LABS: GLUCOMETER DEV NAME(LOC) 2WR.1C; GLUCOSE,POINT OF CARE 106 MG/DL (70-110)
[2021-09-15] MEDS: CARVEDILOL 12.5 MG TABLET PO SCH ×3 (07:30→21:38)
[2021-09-15] MEDS: SEVELAMER CARBONATE 800 MG TABLET PO SCH ×3 (08:19→21:37)
[2021-09-15] MEDS: FERROUS SULFATE 325 MG EC TABLET PO SCH (08:19)
[2021-09-15] MEDS: ASPIRIN 81 MG CHEWABLE TABLET PO SCH (08:31)
[2021-09-15] MEDS: VITAMIN B COMPLEX WITH C TABLET PO SCH (08:35)
[2021-09-15] MEDS: ASCORBIC ACID 500 MG TABLET PO SCH (08:36)
[2021-09-15] MEDS: DOCUSATE SODIUM 100 MG CAPSULE PO SCH ×2 (08:36→21:38)
[2021-09-15] MEDS: PANTOPRAZOLE SODIUM 40 MG DR TABLET PO SCH ×2 (08:36→21:46)
[2021-09-15] MEDS: FINASTERIDE 5 MG TABLET PO SCH (08:36)
[2021-09-15] MEDS: TAMSULOSIN HCL 0.4 MG CAPSULE PO SCH (08:36)
[2021-09-15] MEDS: ETHYL ALCOHOL 62% ANTISEPTIC NASAL INHALANT 0.6 ML AMPUL NASAL SCH ×2 (08:38→21:41)
[2021-09-15] MEDS: CycloSPORINE 0.05% 0.4 ML OPHTHALMIC EMULSION OU SCH ×2 (08:39→21:37)
[2021-09-15] MEDS: PRAVASTATIN SODIUM 10 MG TABLET PO SCH (08:40)
[2021-09-15] MEDS: KETOCONAZOLE 2% 15 GM CREAM TP SCH ×2 (08:41→21:37)
[2021-09-15] MEDS: AMIODARONE HCL 200 MG TABLET PO SCH (09:00)
[2021-09-15 09:05] VITALS: BP 124/88
[2021-09-15] MEDS: OxyCODONE HCL 5 MG IR TABLET PO PRN ×2 (09:05→23:24)
[2021-09-15] MEDS: 0.9% SODIUM CHLORIDE 10 ML SYRINGE IVP SCH ×3 (09:16→23:27)
[2021-09-15 09:22] LABS: INR 1.9 (0.9-1.1)
[2021-09-15] MEDS: INSULIN LISPRO 100 UNITS/ML SQ PRN (12:20)
[2021-09-15] MEDS ORDERED: HEPARIN SODIUM,PORCINE 1,000 UNITS/ML VIAL IVP ONE (13:39)
[2021-09-15 15:30] VITALS: BP 117/55
[2021-09-15] MEDS: LORazepam 0.5 MG TABLET PO PRN (16:48)
[2021-09-15] MEDS ORDERED: SODIUM CHLORIDE 0.9% 1,000 ML ONE ×2 (16:52)
[2021-09-15 17:00] VITALS: BP 127/58
[2021-09-15] MEDS ORDERED: SODIUM CL IRRIG SOLN BOTTLE 250 ML IRRIG ONE (20:47)
[2021-09-15] MEDS: SOD FERRIC GLUC COMPLX/SUCROSE 125 MG in SODIUM CHLORIDE 0.9% 100 ML IV SCH (21:36)
[2021-09-15] MEDS: CHLORHEXIDINE GLUCONATE 4% 118 ML TOPICAL LIQUID TP SCH (21:37)
[2021-09-15] MEDS: SENNA 187 MG TABLET PO SCH (21:37)
[2021-09-15] MEDS: WARFARIN SODIUM 2 MG TABLET PO SCH (21:38)
[2021-09-15 21:40] VITALS: BP 129/65
[2021-09-15] MEDS: MIRTAZAPINE 30 MG TABLET PO SCH (22:50)
[2021-09-15] MEDS: MELATONIN 5 MG TABLET PO SCH (22:50)
[2021-09-15] MEDS: CALCIUM CARBONATE 500 MG CHEWABLE TABLET CHEW SCH (22:50)
[2021-09-15 23:24] VITALS: BP 110/57
[2021-09-15 23:36] LABS: GLUCOMETER DEV NAME(LOC) 2WR.2B; GLUCOSE,POINT OF CARE 143 MG/DL (70-110)
[2021-09-15 23:36] LABS: GLUCOMETER DEV NAME(LOC) 2WR.2B; GLUCOSE,POINT OF CARE 91 MG/DL (70-110)
[2021-09-16] MEDS: LORazepam 0.5 MG TABLET PO PRN (01:12)
[2021-09-16 05:31] LABS: GLUCOMETER DEV NAME(LOC) 2WR.1C; GLUCOSE,POINT OF CARE 146 MG/DL (70-110)
[2021-09-16] MEDS: FERROUS SULFATE 325 MG EC TABLET PO SCH (07:57)
[2021-09-16] MEDS: FINASTERIDE 5 MG TABLET PO SCH (07:57)
[2021-09-16] MEDS: AMIODARONE HCL 200 MG TABLET PO SCH (07:58)
[2021-09-16] MEDS: ASPIRIN 81 MG CHEWABLE TABLET PO SCH (07:58)
[2021-09-16] MEDS: ASCORBIC ACID 500 MG TABLET PO SCH (07:58)
[2021-09-16] MEDS: SEVELAMER CARBONATE 800 MG TABLET PO SCH ×2 (07:58→12:21)
[2021-09-16] MEDS: TAMSULOSIN HCL 0.4 MG CAPSULE PO SCH (07:58)
[2021-09-16] MEDS: PANTOPRAZOLE SODIUM 40 MG DR TABLET PO SCH (07:58)
[2021-09-16] MEDS: DOCUSATE SODIUM 100 MG CAPSULE PO SCH (07:58)
[2021-09-16] MEDS: CARVEDILOL 12.5 MG TABLET PO SCH (07:58)
[2021-09-16] MEDS: ETHYL ALCOHOL 62% ANTISEPTIC NASAL INHALANT 0.6 ML AMPUL NASAL SCH (08:01)
[2021-09-16] MEDS: CycloSPORINE 0.05% 0.4 ML OPHTHALMIC EMULSION OU SCH (08:01)
[2021-09-16] MEDS: METOLAZONE 2.5 MG TABLET PO SCH (08:02)
[2021-09-16] MEDS: PRAVASTATIN SODIUM 10 MG TABLET PO SCH (08:02)
[2021-09-16] MEDS: VITAMIN B COMPLEX WITH C TABLET PO SCH (08:02)
[2021-09-16] MEDS: KETOCONAZOLE 2% 15 GM CREAM TP SCH (08:02)
[2021-09-16] MEDS: TORSEMIDE 100 MG TABLET PO SCH (08:03)
[2021-09-16] MEDS: 0.9% SODIUM CHLORIDE 10 ML SYRINGE IVP SCH (08:14)
[2021-09-16 08:15] VITALS: BP 115/65
[2021-09-16 10:52] LABS: PROTHROMBIN TIME 20.3 SEC (9.4-11.6)
[2021-09-16] MEDS: OxyCODONE HCL 5 MG IR TABLET PO PRN (12:13)
[2021-09-16 12:41] LABS: GLUCOMETER DEV NAME(LOC) 2WR.2B; GLUCOSE,POINT OF CARE 138 MG/DL (70-110)
[2021-09-16 18:45] LABS: GLUCOMETER DEV NAME(LOC) 2WR.1C; GLUCOSE,POINT OF CARE 136 MG/DL (70-110)
== END 2021-09-16 13:40 | disposition home health service (06) | DRG 91 ==
LOC: 2WR 18:25
PROVIDERS: ADMIT Physical Medicine & Rehabilitation; ATTEND Physical Medicine & Rehabilitation
PROC: 5A1D70Z Performance of Urinary Filtration, Intermittent, Less than 6 Hours Per Day (ICD-10-PCS; principal; 2021-09-07)
PROC: 5A1D70Z Performance of Urinary Filtration, Intermittent, Less than 6 Hours Per Day (ICD-10-PCS; 2021-09-09)
PROC: 5A1D70Z Performance of Urinary Filtration, Intermittent, Less than 6 Hours Per Day (ICD-10-PCS; 2021-09-11)
PROC: 5A1D70Z Performance of Urinary Filtration, Intermittent, Less than 6 Hours Per Day (ICD-10-PCS; 2021-09-13)
PROC: 5A1D70Z Performance of Urinary Filtration, Intermittent, Less than 6 Hours Per Day (ICD-10-PCS; 2021-09-15)
DX: G72.81 Critical illness myopathy (principal); N18.6 End stage renal disease; G82.50 Quadriplegia, unspecified; J96.90 Respiratory failure, unspecified, unspecified whether with hypoxia or hypercapnia; I26.99 Other pulmonary embolism without acute cor pulmonale; J15.1 Pneumonia due to Pseudomonas; I50.23 Acute on chronic systolic (congestive) heart failure; E43 Unspecified severe protein-calorie malnutrition; I13.2 Hypertensive heart and chronic kidney disease with heart failure and with stage 5 chronic kidney disease, or end stage renal disease; I47.2 Ventricular tachycardia; E11.42 Type 2 diabetes mellitus with diabetic polyneuropathy; I25.5 Ischemic cardiomyopathy; I48.0 Paroxysmal atrial fibrillation; I25.10 Atherosclerotic heart disease of native coronary artery without angina pectoris; K21.9 Gastro-esophageal reflux disease without esophagitis; E11.22 Type 2 diabetes mellitus with diabetic chronic kidney disease; E11.319 Type 2 diabetes mellitus with unspecified diabetic retinopathy without macular edema; F32.A Depression, unspecified; D63.1 Anemia in chronic kidney disease; E78.5 Hyperlipidemia, unspecified; E11.51 Type 2 diabetes mellitus with diabetic peripheral angiopathy without gangrene; F41.9 Anxiety disorder, unspecified; Z20.822 Contact with and (suspected) exposure to COVID-19; M54.50 Low back pain, unspecified; G89.29 Other chronic pain; N40.1 Benign prostatic hyperplasia with lower urinary tract symptoms; R33.8 Other retention of urine; C76.0 Malignant neoplasm of head, face and neck; E87.6 Hypokalemia; Z80.0 Family history of malignant neoplasm of digestive organs; Z82.49 Family history of ischemic heart disease and other diseases of the circulatory system; Z84.89 Family history of other specified conditions; Z95.1 Presence of aortocoronary bypass graft; Z86.74 Personal history of sudden cardiac arrest; Z86.711 Personal history of pulmonary embolism; Z79.899 Other long term (current) drug therapy; Z95.5 Presence of coronary angioplasty implant and graft; Z99.2 Dependence on renal dialysis; Z86.79 Personal history of other diseases of the circulatory system; Z95.810 Presence of automatic (implantable) cardiac defibrillator; Z88.8 Allergy status to other drugs, medicaments and biological substances; Z88.1 Allergy status to other antibiotic agents; Z91.041 Radiographic dye allergy status; Z89.421 Acquired absence of other right toe(s); Z68.22 Body mass index [BMI] 22.0-22.9, adult
CPT/HCPCS: 71046; 80048; 80053; 80074; 80076; 82962; 83540; 83550; 83735; 83970; 84100; 85025; 85610; 87081; 87340; 90935; 97110; 97112; 97116; 97163; 97167; 97530; 97535; 99366; J0885; J1644; J2916; J7030; J7050; Q9967; 36415-L1; 36415-TC; U0003